=== PATIENT | male | born 1985 | race Hispanic/Latino ===

== ENCOUNTER 2017-05-14 01:50 | Emergency (ER) | payer BC ==
[2017-05-14] MEDS ORDERED: CEFTRIAXONE SODIUM 1 GM ONE (02:19)
[2017-05-14] MEDS ORDERED: HYDROCODONE/ACETAMINOPHEN 10/325 MG TAB ONE (02:50)
[2017-05-14] MEDS ORDERED: OCTYL 2-CYANOACRYLATE 1 EACH TP ONE (02:55)
[2017-05-15 06:08] LABS: HEPATITIS A ANTIBODY IGM Negative (Negative); HEPATITIS B CORE IGM Negative (Negative); HEPATITIS Bs ANTIGEN SCREEN P Negative (Negative)
== END 2017-05-14 03:07 | disposition home or self-care (01) ==
LOC: EDH 01:50
DX: S01.411A Laceration without foreign body of right cheek and temporomandibular area, initial encounter (principal); Z72.0 Tobacco use; Y04.1XXA Assault by human bite, initial encounter; Y93.89 Activity, other specified; Y92.89 Other specified places as the place of occurrence of the external cause; Y99.8 Other external cause status
CPT/HCPCS: 12051; 36415; 80074; 86701; 87390; 96372; 99284; J0696